=== PATIENT | female | born 1955 | race Caucasian/White ===

== ENCOUNTER 2019-06-24 13:25 | Emergency (ER) | payer MEDICARE ==
[2019-06-24 13:37] VITALS: BP 104/78
--- NOTE | 2019-06-24 13:56 | UC ---
Respiratory Complaint HPI - HPI Summary HPI Summary: 63-year-old female comes in with a chief complaint of shortness of breath. She' s been having cough chest congestion fevers and green sputum for approximately 2 weeks. She does have COPD and her nebulizer does help her breathing. She does have some chest pressure associated with the illness. Minimal rhinorrhea. No edema. Patient feels fatigued. She also has been having some frontal headaches which she believes has to do with her oxygen level being low. - History of Current Complaint Chief Complaint: UCRespiratory Stated Complaint: FEVER Time Seen by Provider: 06/24/19 13:41 Pain Intensity: 0 - Allergies/Home Medications Allergies/Adverse Reactions: Allergies Allergy/AdvReac Type Severity Reaction Status Date / Time azithromycin Allergy Hives/Diff. Verified 06/24/19 13:38 Breathing/I tching meperidine [From Demerol] Allergy Palpitation Verified 06/24/19 13:38 s Penicillins Allergy Hives Verified 06/24/19 13:38 Sulfa (Sulfonamide Allergy Vomiting Verified 06/24/19 13:38 Antibiotics) Home Medications: Home Medications Albuterol HFA INHALER* [Ventolin HFA Inhaler*] 1 puff PRN 06/24/19 [History] PMH/Surg Hx/FS Hx/Imm Hx Previously Healthy: Yes Respiratory History: COPD - Surgical History Surgical History: Yes Surgery Procedure, Year, and Place: stomach hernia, groin hernia, veins in legs, . neck (titanium plate) - Family History Known Family History: Negative: Diabetes - Social History Alcohol Use: None Substance Use Type: None Smoking Status (MU): Former Smoker Type: eCigarettes Amount Used/How Often: 1/2 ppd Length of Time of Smoking/Using Tobacco: 20-30 years Household Exposure Type: Cigarettes Review of Systems All Other Systems Reviewed And Are Negative: Yes Constitutional: Positive: Fever Skin: Positive: Negative Eyes: Positive: Negative ENT: Positive: Nasal Discharge Respiratory: Positive: Shortness Of Breath, Cough Cardiovascular: Positive: Other - SEE HPI Gastrointestinal: Positive: Negative Motor: Positive: Negative Neurovascular: Positive: Negative Musculoskeletal: Positive: Negative Neurological: Positive: Headache Psychological: Positive: Negative Is Patient Immunocompromised?: No Physical Exam Triage Information Reviewed: Yes Appearance: No Pain Distress, Well-Nourished, Ill-Appearing - MILD Vital Signs: Initial Vital Signs Temp 98.1 F 06/24/19 13:33 Pulse 106 06/24/19 13:33 Resp 18 06/24/19 13:33 BP 104/78 06/24/19 13:33 Pulse Ox 93 06/24/19 13:33 Vital Signs Reviewed: Yes Eye Exam: Normal Eyes: Positive: Conjunctiva Clear ENT: Positive: Pharyngeal erythema, Nasal congestion, TMs normal Neck: Positive: Supple Respiratory: Positive: No respiratory distress, Rhonchi Cardiovascular: Positive: RRR Musculoskeletal: Positive: Strength Intact, ROM Intact, No Edema - NO CALF TENDERNESS Neurological: Positive: Alert Psychological: Positive: Age Appropriate Behavior Skin Exam: Normal Diagnostics - EKG Cardiac Rate: NL - at 1411 Cardiac Rhythm: Sinus: Normal - 95bpm Ectopy: None ST Segment: Normal Respiratory Course/Dx - Course Course Of Treatment: Patient Name: EZ RODRIGUEZ Medical Record#: [id number] Ordering Physician: Ashish Webb MD Acct.#: [id number] : 1955 Age: 63 Sex: F Location: [facility] Exam Date: 06/24/19 134 ADM Status: REG ER Order Information: CHEST PA LAT 2 VWS Accession Number: [id number] CPT: 33046 INDICATION: Cough, congestion, fever 2 weeks duration. Chest pain. COPD. COMPARISON: September 05, 2013 TECHNIQUE: Dual energy PA and routine lateral views of the chest were obtained. REPORT: Elevated lung volumes. Significant bilateral alveolar and interstitial consolidation with relative sparing of the upper lung zones new compared with the prior exam. Negative for pleural effusion or pneumothorax. The heart, pulmonary vasculature, and mediastinal contours are unremarkable. IMPRESSION: #. The constellation of findings is most suggestive of bronchopneumonia superimposed on chronic obstructive pulmonary disease. No radiographic follow-up after therapy warranted to assess for resolution. <Electronically signed by Juan Antonio Potter MD in OV> 06/24/19 1413 I discussed the x-rays and the EKG with the patient. In clinic patient declined a breathing treatment. I discussed the pneumonia with her and asked if she wanted to go the emergency department for consideration for admission and patient declined. Patient is allergic to Zhao azithromycin and penicillins and she tells me that her primary care doctor said to not be on Levaquin therefore we are selecting doxycycline 100 mg by mouth twice a day for her antibiotic and also treating her with prednisone. She tells me she he has plenty of nebulizer bronchodilator medication. Oxygen saturation here was 93% and blood pressure was 104/78. Patient tells me she typically has low blood pressure and recently stopped lisinopril because of low blood pressure at her primary care physician. I discussed all of this with the patient and her daughter to reinforce that if she did not improve or if she got worse she needs to go the emergency department. She'll follow-up primary care doctor and if she does not improve or she worsens she is to go to the emergency department. - Differential Dx/Diagnosis Provider Diagnosis: Pneumonia, COPD exacerbation Discharge - Sign-Out/Discharge Documenting (check all that apply): Patient Departure All imaging exams completed and their final reports reviewed: Yes - Discharge Plan Condition: Stable Disposition: HOME Prescriptions: DOXYcycline CAP(*) [DOXYcycline 100MG CAP(*)] 100 mg PO BID #20 cap predniSONE TAB* [Deltasone 20 MG TAB*] 40 mg PO DAILY #8 tab Patient Education Materials: COPD (Chronic Obstructive Pulmonary Disease) (ED) , Community Acquired Pneumonia (ED) Referrals: Eric Barclay MD [Primary Care Provider] - Additional Instructions: FOLLOW UP WITH YOUR DOCTOR. GO TO THE EMERGENCY DEPARTMENT IF YOUR CONDITION DOES NOT IMPROVE OR WORSENS; SHORTNESS OF BREATH, CHEST PAIN, YOU FEEL ILL OR ANY QUESTIONS OR CONCERNS. - Billing Disposition and Condition Condition: STABLE Disposition: Home
[2019-06-24] MEDS ORDERED: predniSONE TAB* 20 MG PO ONE (14:38)
== END 2019-06-24 14:50 | disposition home or self-care (01) ==
LOC: UCEAST 13:25
DX: J18.9 Pneumonia, unspecified organism (principal); J44.1 Chronic obstructive pulmonary disease with (acute) exacerbation; Z87.891 Personal history of nicotine dependence; Z88.0 Allergy status to penicillin; Z88.2 Allergy status to sulfonamides
CPT/HCPCS: 71046; 93005; 99212; G0463; J7512